=== PATIENT | male | born 1995 | race Caucasian/White ===

== ENCOUNTER 2020-09-04 16:34 | Emergency (ER) | payer SELFPAY ==
[~2020-09-04] VITALS: Ht 177.8 cm; Wt 98.4 kg
[2020-09-04 16:55] VITALS: BP 159/83
[2020-09-04] MEDS ORDERED: PANTOPRAZOLE 40 MG TABEC PO ONE (17:25)
[2020-09-04] MEDS ORDERED: IBUPROFEN 400 MG TAB PO ONE (17:25)
[2020-09-04 17:58] LABS: BASOPHILS % (AUTO) 0.4 % (0.0-2.0); EOSINOPHILS % (AUTO) 0.4 % (0.0-4.0); HEMATOCRIT 42.9 % (36-52); HEMOGLOBIN 14.3 g/dL (12.0-18.0); LYMPHOCYTES # (AUTO) 2.1 K/uL (2.0-11.5); LYMPHOCYTES % (AUTO) 25.8 % (20.5-51.1); MEAN CORPUSCULAR HEMOGLOBIN 29 pg (27-31); MEAN CORPUSCULAR HGB CONC 33 g/dL (33-37); MEAN CORPUSCULAR VOLUME 88.2 fL (80-94); MONOCYTES # (AUTO) 0.6 K/uL (0.8-1.0); MONOCYTES % (AUTO) 7.8 % (1.7-9.3); NEUTROPHILS # (AUTO) 5.2 K/uL (1.8-7.7); NEUTROPHILS % (AUTO) 65.6 % (42.2-75.2); PLATELET COUNT (AUTO) 221 K/uL (140-450); RED BLOOD CELL COUNT(AUTO) 4.87 MIL/uL (4.20-6.10); RED CELL DISTRIBUTION WIDTH 13.3 % (11.6-13.7)
--- NOTE | 2020-09-04 17:58 | NUR ---
c/o c/p that started today but not exactly pain but more of a discomfort to the sternum. Tingling in the left arm for 1wk. Patient denies taking any medication. AAOx4. VSS. PMH: wrist sugery Allergies: penicillins
--- NOTE | 2020-09-04 18:12 | NUR ---
patient to xray
[2020-09-04 18:20] LABS: ALBUMIN 4.7 g/dL (3.4-5.0); ANION GAP 11.6 (8-16); CARBON DIOXIDE 28.8 mmol/L (21-32); CREATININE 0.9 mg/dL (0.6-1.3); POTASSIUM 4.4 mmol/L (3.5-5.1); TOTAL BILIRUBIN 0.7 mg/dL (0.0-1.0)
--- NOTE | 2020-09-04 19:12 | NUR ---
Pt report given to JIMMIE Ortiz. Transfer of care at this time.
--- NOTE | 2020-09-04 19:21 | NUR ---
pt. sitting on bed comfortably, phone in hand. voices no complaints at this time.
[2020-09-04] MEDS ORDERED: PANT40EC PO (19:35)
[2020-09-04 19:43] VITALS: BP 126/80
--- NOTE | 2020-09-04 19:43 | NUR ---
Patient discharged with v/s stable. Written and verbal after care instructions given and explained. Patient alert, oriented and verbalized understanding of instructions. Ambulatory with steady gait. All questions addressed prior to discharge. ID band removed. Patient advised to follow up with PMD. Rx of PROTONIX given. Patient educated on indication of medication including possible reaction and side effects. Opportunity to ask questions provided and answered.
== END 2020-09-04 19:43 | disposition home or self-care (01) ==
LOC: MED 16:34
DX: R07.89 Other chest pain (principal); F12.90 Cannabis use, unspecified, uncomplicated; Z88.0 Allergy status to penicillin; Z98.890 Other specified postprocedural states
CPT/HCPCS: 36415; 71045; 80053; 84484; 85025; 93005; 99284

== ENCOUNTER 2021-01-01 13:50 | Emergency (ER) | payer SELFPAY ==
[~2021-01-01] VITALS: Ht 172.7 cm; Wt 102.5 kg
[~2021-01-01 13:50] MED LIST: PANT40EC PO
[2021-01-01 13:58] VITALS: BP 177/132
[2021-01-01] MEDS ORDERED: PROCHLORPERAZINE 10 MG/2 ML VIAL IM ONE (15:40)
[2021-01-01] MEDS ORDERED: DICYCLOMINE HCL LIQUID 20 MG, ALUMINUM HYD/MAG/SIMETHICONE 30 ML, LIDOCAINE VISCOUS 2% ... PO ONE ×3 (15:40)
[2021-01-01 16:00] LABS: BASOPHILS % (AUTO) 0.2 % (0.0-2.0); EOSINOPHILS % (AUTO) 0.1 % (0.0-4.0); HEMATOCRIT 47.3 % (36-52); HEMOGLOBIN 16.2 g/dL (12.0-18.0); LYMPHOCYTES # (AUTO) 1.2 K/uL (2.0-11.5); LYMPHOCYTES % (AUTO) 10.6 % (20.5-51.1); MEAN CORPUSCULAR HEMOGLOBIN 29 pg (27-31); MEAN CORPUSCULAR HGB CONC 34 g/dL (33-37); MEAN CORPUSCULAR VOLUME 84.9 fL (80-94); MONOCYTES # (AUTO) 0.3 K/uL (0.8-1.0); MONOCYTES % (AUTO) 2.7 % (1.7-9.3); NEUTROPHILS # (AUTO) 10.1 K/uL (1.8-7.7); NEUTROPHILS % (AUTO) 86.4 % (42.2-75.2); PLATELET COUNT (AUTO) 281 K/uL (140-450); RED BLOOD CELL COUNT(AUTO) 5.56 MIL/uL (4.20-6.10); WHITE BLOOD COUNT (AUTO) 11.7 K/uL (4.8-10.8)
[2021-01-01] MEDS ORDERED: ALUMINUM HYD/MAG/SIMETHICONE 30 ML UDC ONE (16:08)
[2021-01-01] MEDS ORDERED: DICYCLOMINE HCL LIQUID 10 MG/5 ML UDC ONE (16:08)
--- NOTE | 2021-01-01 16:10 | NUR ---
Pt ambulated to bed 12 with steady/even gait
--- NOTE | 2021-01-01 16:10 | NUR ---
25 y/o M BIB self from home c/o nausea vomiting + epigastric pain since Sat[place]. Patient A&Ox4, ambulatory, reports he was riding quads and did not eat the entire day. Patient states epigastric pain 10/10, burning/cramping/constant, non-radiating pain. Patient states symptoms have been intermittent for him and worsened this morning with vomiting >10 episodes "yellow foam that made me concern." Patient states decreased appetite d/t vomiting and states drinking fluids prior to arrival without relief to symptoms. Patient denies any trauma/injury to abdomen, fever, chills, SOB, chest pain, dysuria, urinary symptoms. Abd soft/round/tender to palpation. Reports slight diarrhea yesterday during bowel movement. Bed locked in lowest position, side rails x 1, call light in reach. PMH/Sx/Meds: denies NKA
[2021-01-01 16:14] LABS: ALBUMIN 5.2 g/dL (3.4-5.0); ANION GAP 15.3 (8-16); CARBON DIOXIDE 30.4 mmol/L (21-32); CREATININE 1.1 mg/dL (0.6-1.3); POTASSIUM 3.7 mmol/L (3.5-5.1)
--- NOTE | 2021-01-01 16:32 | NUR ---
Patient states + relief to pain and nausea. 05/27 "discomfort, no pain." No nausea at this time. Emesis bag remains at bedside per request.
--- NOTE | 2021-01-01 18:00 | NUR ---
Pt states 3 episodes of vomiting. Relief to pain, however, still nausea. Dr. Schrader made aware
[2021-01-01] MEDS ORDERED: NACL 0.9% 1,000 ML IV ONE (18:15)
[2021-01-01] MEDS ORDERED: METOCLOPRAMIDE 10 MG/2 ML INJ VIAL IVP ONE (18:15)
[2021-01-01] MEDS ORDERED: diphenhydrAMINE 50 MG/ML VIAL IVP ONE (18:15)
[2021-01-01 18:55] VITALS: BP 144/82
--- NOTE | 2021-01-01 18:55 | NUR ---
Pt states 0/10 pain +relief to nausea. All pt needs met.
--- NOTE | 2021-01-01 19:16 | NUR ---
Report and transfer of care endorsed to JIMMIE Arreola
[2021-01-01] MEDS ORDERED: METO-486 PO (19:22)
--- NOTE | 2021-01-01 20:04 | NUR ---
pt left with script of reglan in hand, arm band off 20g removed. discharge instructions propvided, pt verbelized understanding. pt left v/s stable.
[2021-01-01] MEDS ORDERED: ASPIRIN 325 MG TAB ONE (21:53)
== END 2021-01-01 20:04 | disposition home or self-care (01) ==
LOC: MED 13:50
DX: R11.2 Nausea with vomiting, unspecified (principal); R10.13 Epigastric pain; Z79.899 Other long term (current) drug therapy; Z88.0 Allergy status to penicillin
CPT/HCPCS: 36415; 80053; 81002; 83690; 85025; 96361; 96372; 96374; 96375; 99284; J0780; J1200; J2765; J7030